=== PATIENT | female | born 1945 | race Caucasian/White ===

== ENCOUNTER 2019-10-15 14:40 | Emergency (ER) | payer MEDICARE, BC ==
[~2019-10-15] VITALS: Ht 160 cm; Wt 58.1 kg
[2019-10-15 15:23] LABS: BASOPHILS ABSOLUTE AUTO 0.05 K/mm3 (0.00-0.23); BASOPHILS PERCENT AUTO 0 % (0-2); EOSINOPHILS ABSOLUTE AUTO 0.06 K/mm3 (0.00-0.68); EOSINOPHILS PERCENT AUTO 1 % (0-6); Hematocrit 38.3 % (33.0-51.0); IMMATURE GRAN ABSOLUTE AUTO 0.03 K/mm3 (0.00-0.10); IMMATURE GRAN PERCENT AUTO 0 % (0-1); LYMPHOCYTES ABSOLUTE AUTO 1.02 K/mm3 (0.84-5.20); LYMPHOCYTES PERCENT AUTO 8 % (21-46); MONOCYTES ABSOLUTE AUTO 1.05 K/mm3 (0.16-1.47); MONOCYTES PERCENT AUTO 8 % (4-13); Mean Corpuscular HGB 29.8 pg (26.0-34.0); Mean Corpuscular HGB Conc 33.9 g/dL (31.5-36.5); Mean Corpuscular Volume 88 fL (80-100); Mean Platelet Volume 9.4 fL (9.1-12.4); NEUTROPHILS ABSOLUTE AUTO 10.34 K/mm3 (1.96-9.15); NEUTROPHILS PERCENT AUTO 82 % (41-73); Platelet Count 374 K/mm3 (150-400); RDW Coefficient Variation 12.2 % (11.7-14.2); RDW Standard Deviation 39.4 fL (35.1-46.3); Red Blood Cell Count 4.36 M/mm3 (3.80-5.20); White Blood Cell Count 12.55 K/mm3 (4.00-11.30)
[2019-10-15 15:37] LABS: International Normalized Ratio 0.91; Prothrombin Time Results 9.7 Sec (9.7-11.5)
[2019-10-15] MEDS ORDERED: Prinivil10 MG PO (15:38)
[2019-10-15] MEDS ORDERED: LEVSOD50 PO (15:38)
[2019-10-15] MEDS ORDERED: ESTMED PO (15:38)
[2019-10-15] MEDS ORDERED: MYCO250 PO (15:38)
[2019-10-15] MEDS ORDERED: SENN187 PO (15:39)
[2019-10-15] MEDS ORDERED: CONEST.9 PO (15:39)
[2019-10-15] MEDS ORDERED: PRED5 PO (15:39)
[2019-10-15] MEDS ORDERED: Ativan1 MG PO (15:39)
[2019-10-15 15:43] LABS: Alanine Aminotransfer (ALT/SGP 64 U/L (12-78); Albumin/Globulin Ratio 1.2 (0.8-1.8); Alk Phos 57 U/L (50-136); Anion Gap 9 mmol/L (6-16); Aspartate Aminotrans (AST/SGOT 37 U/L (12-37); Bilirubin, Total 0.5 mg/dL (0.1-1.0); Blood Urea Nitrogen 11 mg/dL (8-24); Bun/Creatinine Ratio 15.7 (12.0-20.0); CO2, Blood 24 mmol/L (21-32); Chloride, Blood 103 mmol/L (98-108); Globulin, Blood 3.3 g/dL (2.2-4.0); Glomerular Filtration Rate >60 (60-); Glucose, Blood 96 mg/dL (70-99); Potassium, Blood 3.8 mmol/L (3.5-5.5); Sodium, Blood 136 mmol/L (136-145); Total Protein, Blood 7.3 g/dL (6.4-8.2)
[2019-10-15 15:48] LABS: Influenza A Negative (NEGATIVE); Influenza B Negative (NEGATIVE)
[2019-10-15] MEDS ORDERED: BENZ100A PO (17:21)
[2019-10-15] MEDS ORDERED: ALBU90OI INH (17:21)
[2019-10-15] MEDS ORDERED: Tamiflu75 MG PO (17:23)
== END 2019-10-15 17:36 | disposition home or self-care (01) ==
LOC: ER 14:40
PROVIDERS: Physician Assistant
DX: J98.01 Acute bronchospasm (principal); R50.9 Fever, unspecified; E03.9 Hypothyroidism, unspecified; I10 Essential (primary) hypertension; Z88.0 Allergy status to penicillin; Z91.040 Latex allergy status; Z79.899 Other long term (current) drug therapy
CPT/HCPCS: 36415; 71046; 80053; 83605; 84145; 84484; 85025; 85610; 85730; 87040; 87804; 93005; 93010; 94640; 99284-25; J7120